=== PATIENT | male | born 1940 | race Caucasian/White ===

== ENCOUNTER 2018-04-16 14:39 | Emergency (ER) | payer MEDICARE, OTHER ==
[~2018-04-16] VITALS: Ht 180.3 cm; Wt 89.5 kg
[2018-04-16 14:41] VITALS: Ht 180.3 cm; Wt 89.5 kg
[2018-04-16] MEDS ORDERED: TRADJENTA5 MG PO (14:42)
[2018-04-16] MEDS ORDERED: FLAXSEED OIL1000 MG PO (14:43)
[2018-04-16] MEDS ORDERED: ACETAMINOPHEN500 M1 PO (14:43)
[2018-04-16] MEDS ORDERED: MULTIPLE VITAMI1 TA1 PO (14:43)
[2018-04-16] MEDS ORDERED: BAYER CHEWABLE81 MG PO (14:43)
[2018-04-16] MEDS ORDERED: PROTONIX40 MG PO (14:44)
[2018-04-16] MEDS ORDERED: COREG6.25 MG PO (14:44)
[2018-04-16] MEDS ORDERED: GLIMEPIRIDE4 MG PO (14:44)
[2018-04-16] MEDS ORDERED: LOPID600 MG PO (14:44)
[2018-04-16] MEDS ORDERED: NIASPAN500 MG PO (14:44)
[2018-04-16] MEDS ORDERED: COZAAR25 MG PO (14:45)
[2018-04-16] MEDS ORDERED: LANOXIN125 MCG PO (14:45)
[2018-04-16] MEDS ORDERED: LEXAPRO5 MG PO (14:45)
[2018-04-16] MEDS ORDERED: XALATAN 0.0052.5 ML EACH EYE (14:46)
[2018-04-16 15:42] VITALS: BP 151/74
== END 2018-04-16 15:43 | disposition home or self-care (01) ==
LOC: D.ER 14:39
DX: E11.649 Type 2 diabetes mellitus with hypoglycemia without coma (principal); Z86.79 Personal history of other diseases of the circulatory system; Z95.0 Presence of cardiac pacemaker; I10 Essential (primary) hypertension; K21.9 Gastro-esophageal reflux disease without esophagitis